=== PATIENT | female | born 1995 | race Caucasian/White ===

== ENCOUNTER 2017-12-02 16:50 | Emergency (ER) | payer MEDICAID, OTHER ==
[~2017-12-02] VITALS: Ht 160 cm; Wt 60.0 kg
[~2017-12-02 16:50] MED LIST: PHEN-824 PO
[2017-12-02 17:10] VITALS: BP 105/89
== END 2017-12-02 17:12 | disposition home or self-care (01) ==
LOC: ER 16:51
DX: Z02.89 Encounter for other administrative examinations (principal); F11.10 Opioid abuse, uncomplicated; F12.90 Cannabis use, unspecified, uncomplicated; F15.90 Other stimulant use, unspecified, uncomplicated; Z56.0 Unemployment, unspecified; Z98.890 Other specified postprocedural states
CPT/HCPCS: 99281

== ENCOUNTER 2019-08-14 19:58 | Emergency (ER) | payer SELFPAY ==
[~2019-08-14] VITALS: Ht 160 cm; Wt 69.5 kg
[~2019-08-14 19:58] MED LIST changes: +LIDOcaine 1% W/epiNEPHrine 1:100,000 20ml vial ONE
[2019-08-14] MEDS ORDERED: TETanus/Pertussis (Acell)/Diphther VAC/PF (Tdap-Adult) 0.5ml syringe IMVAC ONE (20:25)
[2019-08-14] MEDS ORDERED: CefTRIAXone 1000mg IM Kit (w/lidocaine diluent) IM ONE (20:30)
[2019-08-14] MEDS ORDERED: HYDROcodone/acetaminophen 5mg/325mg tablet PO ONE (21:35)
[2019-08-14] MEDS ORDERED: SULF1TAB49 PO (21:51)
[2019-08-14] MEDS ORDERED: LACT1CAP75 PO (21:51)
[2019-08-14] MEDS ORDERED: CEPH500C5 PO (21:51)
[2019-08-14 22:06] VITALS: BP 110/67
== END 2019-08-14 22:05 | disposition home or self-care (01) ==
LOC: ER 19:59
DX: L03.116 Cellulitis of left lower limb (principal); L02.416 Cutaneous abscess of left lower limb; F12.90 Cannabis use, unspecified, uncomplicated; F15.90 Other stimulant use, unspecified, uncomplicated; Z98.890 Other specified postprocedural states; Z56.0 Unemployment, unspecified; Z79.899 Other long term (current) drug therapy
CPT/HCPCS: 90471; 90715; 96372; 99284; J0696

== ENCOUNTER 2019-09-17 20:14 | Emergency (ER) | payer SELFPAY ==
[~2019-09-17] VITALS: Ht 160 cm; Wt 58.0 kg
[~2019-09-17 20:14] MED LIST changes: +CEPH500C5 PO; +LACT1CAP75 PO; -LIDOcaine 1% W/epiNEPHrine 1:100,000 20ml vial ONE
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
[2019-09-17] MEDS ORDERED: LIDOcaine 1% W/epiNEPHrine 1:200,000 10ml vial IJ ONE (20:50)
--- NOTE | 2019-09-17 21:00 | NUR ---
[facility] 2 CALLED OFF AT [id number]
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
[2019-09-17 23:10] VITALS: BP 103/69
== END 2019-09-17 23:12 | disposition home or self-care (01) ==
LOC: ER 20:15
DX: S71.011A Laceration without foreign body, right hip, initial encounter (principal); F12.90 Cannabis use, unspecified, uncomplicated; F15.90 Other stimulant use, unspecified, uncomplicated; Z56.0 Unemployment, unspecified; Z79.899 Other long term (current) drug therapy; X58.XXXA Exposure to other specified factors, initial encounter; Y93.89 Activity, other specified; Y92.89 Other specified places as the place of occurrence of the external cause; Y99.8 Other external cause status
CPT/HCPCS: 12002; 12013; 99282

== ENCOUNTER 2020-08-25 03:11 | Emergency (ER) | payer MEDICAID, OTHER ==
[~2020-08-25] VITALS: Ht 157.5 cm; Wt 67.7 kg
[~2020-08-25 03:11] MED LIST changes: -CEPH500C5 PO
[2020-08-25 03:26] VITALS: BP 115/83
[2020-08-25] MEDS ORDERED: DOXY-1 PO (03:44)
[2020-08-25] MEDS ORDERED: CEFTRIAXONE 500 MG VIAL IM ONE (03:45)
[2020-08-25] MEDS ORDERED: CefTRIAXone 1000mg IM Kit (w/lidocaine diluent) IM ONE (03:55)
== END 2020-08-25 04:23 | disposition home or self-care (01) ==
LOC: ER 03:12
DX: Z11.3 Encounter for screening for infections with a predominantly sexual mode of transmission (principal); N93.9 Abnormal uterine and vaginal bleeding, unspecified; R30.9 Painful micturition, unspecified; F12.90 Cannabis use, unspecified, uncomplicated; F15.90 Other stimulant use, unspecified, uncomplicated; Z87.440 Personal history of urinary (tract) infections; Z98.890 Other specified postprocedural states; Z56.0 Unemployment, unspecified; Z79.2 Long term (current) use of antibiotics; Z79.899 Other long term (current) drug therapy
CPT/HCPCS: 36415; 87491; 87591; 96372; 99283; J0696